=== PATIENT | female | born 1955 | race Caucasian/White ===

== ENCOUNTER 2020-03-16 14:49 | Inpatient (IN) | payer MEDICARE, MEDICAID ==
[~2020-03-16] VITALS: Ht 165.1 cm; Wt 119.6 kg
[~2020-03-16 14:49] MED LIST: LEVO50TA4 PO; LORA1TAB3 PO; QUET400T5 PO; ZOLP10TA8 PO
[2020-03-16 16:56] LABS: BASOPHILS % (AUTO) 1.5 % (0.0-2.0); EOSINOPHILS % (AUTO) 2.7 % (1.0-6.0); HEMOGLOBIN 11.8 g/dL (12.0-16.0); LYMPHOCYTES # (AUTO) 1.3 K/uL (1.0-4.8); MEAN CORPUSCULAR HEMOGLOBIN 28.4 pg (26.0-34.0); MEAN CORPUSCULAR HGB CONC 31.8 G/dL (31.0-37.0); MEAN CORPUSCULAR VOLUME 89 fL (80-100); MONOCYTES # (AUTO) 0.5 K/uL (0.1-1.0); MONOCYTES % (AUTO) 9.7 % (2.0-9.0); NEUTROPHILS # (AUTO) 3.1 K/uL (1.8-7.7); NEUTROPHILS % (AUTO) 60.1 % (40.0-70.0); PLATELET COUNT (AUTO) 251 K/uL (150-450); RED BLOOD CELL COUNT(AUTO) 4.15 MIL/uL (4.00-5.20); RED CELL DISTRIBUTION WIDTH 15.2 % (11.5-14.5)
[2020-03-16] MEDS ORDERED: ZOLPIDEM TARTRATE 10 MG TABLET PO PRN (17:15)
[2020-03-16] MEDS ORDERED: QUEtiapine FUMARATE 100 MG TABLET PO PRN (17:15)
[2020-03-16] MEDS ORDERED: LORazepam 2 MG TABLET PO PRN (17:15)
[2020-03-16 17:50] LABS: ALANINE AMINOTRANSFERASE 16 U/L (12-78); ALBUMIN 3.7 g/dL (3.4-5.0); ALKALINE PHOSPHATASE 69 U/L (46-116); ANION GAP 6 mmol/L (8-16); ASPARTATE AMINOTRANSFERASE 20 U/L (15-37); BILIRUBIN,TOTAL 0.5 mg/dL (0.1-1.0); CALCIUM, TOTAL 8.7 mg/dL (8.8-10.5); CARBON DIOXIDE 28 mmol/L (22-29); CHLORIDE 102 mmol/L (98-107); CREATININE 0.95 mg/dL (0.60-1.30); GLOMERULAR FILTR. RATE CALC 59 mL/min (>60); GLUCOSE,RANDOM 95 mg/dL (70-110); POTASSIUM 3.9 mmol/L (3.5-5.1); SODIUM SERUM 136 mmol/L (136-145); TOTAL PROTEIN, SERUM 7.8 g/dL (6.4-8.2); UREA NITROGEN, BLOOD 14 mg/dL (7-18)
[2020-03-16 19:38] VITALS: BP 124/90
[2020-03-16] MEDS ORDERED: INFLUENZA VIRUS VACCINE QVS 2019-20 (3YR+)/PF 60 MCG/0.5 ML SYRINGE IM ONE (20:30)
[2020-03-16] MEDS ORDERED: PNEUMOCOCCAL VACCINE POLYVALENT 0.5 ML VIAL [PPSV23] IM ONE (20:30)
[2020-03-17 02:25] VITALS: BP 124/90
[2020-03-17] MEDS: LEVOTHYROXINE SODIUM 137 MCG TABLET PO SCH (07:16)
[2020-03-17 07:47] LABS: CHOL/HDL RATIO 3.5 (3.9-5.7); THYROID STIMULATING HORMONE 14.7 uIU/mL (0.36-3.74)
[2020-03-17 08:53] VITALS: BP 144/77
[2020-03-17] MEDS ORDERED: MAG HYDROX/AL HYDROX/SIMETH ES 30 ML SUSPENSION UDCUP PO PRN (11:45)
[2020-03-17] MEDS ORDERED: NICOTINE 14 MG/24 HOUR PATCH TD PRN (11:45)
[2020-03-17] MEDS ORDERED: GuaiFENesin/D-METHORPHAN [SUGAR-FREE] 200-20MG/10 ML SYRUP UDCUP PO PRN (11:45)
[2020-03-17] MEDS ORDERED: ALBUTEROL SULFATE HFA 90 MCG/PUFF 8 GM INHALER IH PRN (11:45)
[2020-03-17] MEDS ORDERED: ONDANSETRON HCL 4 MG TABLET PO PRN (11:45)
[2020-03-17] MEDS ORDERED: PETROLATUM,WHITE 28 GM JELLY TP PRN (11:45)
[2020-03-17] MEDS ORDERED: LOPERAMIDE HCL 2 MG CAPSULE PO PRN (11:45)
[2020-03-17] MEDS ORDERED: CloNIDine HCL 0.1 MG TABLET PO PRN (11:45)
[2020-03-17] MEDS ORDERED: ACETAMINOPHEN 325 MG TABLET PO PRN (11:45)
[2020-03-17 12:32] LABS: APPEARANCE,URINE CLOUDY (CLEAR); BILIRUBIN,URINE NEGATIVE (NEGATIVE); GLUCOSE, URINE (UA) NEGATIVE (NEGATIVE); KETONES,URINE NEGATIVE (NEGATIVE); LEUKOCYTE ESTERASE ,URINE SMALL (NEGATIVE); NITRATE,URINE NEGATIVE (NEGATIVE); OCCULT BLOOD,URINE NEGATIVE (NEGATIVE); PH,URINE 6.5 (5.0-8.0); PROTEIN,URINE NEGATIVE (NEGATIVE); UROBILINOGEN,URINE 0.2 mg/dL (<=1.0)
[2020-03-17 13:04] LABS: AMPHET/METH SCREEN,URINE NEGATIVE (NEGATIVE); BARBITURATE SCREEN, URINE NEGATIVE (NEGATIVE); BENZODIAZEPINES SCREEN,URINE NEGATIVE (NEGATIVE); CANNABINOID SCREEN,URINE NEGATIVE (NEGATIVE); COCAINE SCREEN,URINE NEGATIVE (NEGATIVE); METHADONE SCREEN, URINE NEGATIVE (NEGATIVE); OPIATE SCREEN,URINE NEGATIVE (NEGATIVE)
[2020-03-17 13:05] LABS: PHENCYCLIDINE SCREEN,URINE NEGATIVE (NEGATIVE)
[2020-03-17 13:36] LABS: BACTERIA,URINE None Seen /HPF (None Seen); RBC,URINE None Seen /HPF (0-2); SQUAMOUS EPITHELIAL CELL,UR Rare /LPF (None Seen); WBC,URINE 0-2 /HPF (0-5)
[2020-03-17] MEDS ORDERED: ChlorproMAZINE HCL 25 MG/ML 2 ML AMP IM PRN ×2 (15:00)
[2020-03-17] MEDS ORDERED: OLANZapine 5 MG RAPDIS TABLET PO PRN (15:00)
[2020-03-17 16:45] VITALS: BP 119/90
[2020-03-17 16:54] VITALS: BP 119/90
[2020-03-17] MEDS: DIVALPROEX SODIUM 500 MG DR TABLET PO SCH (20:26)
[2020-03-17] MEDS: QUEtiapine FUMARATE 200 MG TABLET PO SCH (20:26)
[2020-03-18] MEDS: LEVOTHYROXINE SODIUM 137 MCG TABLET PO SCH (06:49)
[2020-03-18 08:41] VITALS: BP 137/92
[2020-03-18] MEDS: DIVALPROEX SODIUM 500 MG DR TABLET PO SCH ×2 (08:41→20:07)
[2020-03-18] MEDS: MULTIVITAMINS WITH MINERALS, THERAPEUTIC TABLET PO SCH (08:41)
[2020-03-18] MEDS: IBUPROFEN 400 MG TABLET PO PRN (08:41)
[2020-03-18 08:52] VITALS: BP 137/92
[2020-03-18 16:55] VITALS: BP 113/67
[2020-03-18] MEDS: QUEtiapine FUMARATE 200 MG TABLET PO SCH (20:08)
[2020-03-19] MEDS: LEVOTHYROXINE SODIUM 137 MCG TABLET PO SCH (06:49)
[2020-03-19] MEDS: DIVALPROEX SODIUM 500 MG DR TABLET PO SCH ×2 (08:22→20:18)
[2020-03-19] MEDS: MULTIVITAMINS WITH MINERALS, THERAPEUTIC TABLET PO SCH (08:22)
[2020-03-19 09:50] VITALS: BP 95/57
[2020-03-19 16:17] VITALS: BP 97/53
[2020-03-19] MEDS: QUEtiapine FUMARATE 200 MG TABLET PO SCH (20:18)
[2020-03-19] MEDS: DOCUSATE SODIUM 100 MG CAPSULE PO PRN (20:18)
[2020-03-19] MEDS: IBUPROFEN 400 MG TABLET PO PRN (20:36)
[2020-03-20] MEDS: LEVOTHYROXINE SODIUM 137 MCG TABLET PO SCH (06:23)
[2020-03-20] MEDS: MULTIVITAMINS WITH MINERALS, THERAPEUTIC TABLET PO SCH (09:27)
[2020-03-20] MEDS: DIVALPROEX SODIUM 500 MG DR TABLET PO SCH ×2 (09:27→19:55)
[2020-03-20] MEDS: DOCUSATE SODIUM 100 MG CAPSULE PO PRN (09:32)
[2020-03-20] MEDS: IBUPROFEN 400 MG TABLET PO PRN (09:32)
[2020-03-20 11:20] VITALS: BP 134/79
[2020-03-20 17:04] VITALS: BP 117/75
[2020-03-20] MEDS ORDERED: ZIPRASIDONE MESYLATE 20 MG/VIAL IM ONE (19:15)
[2020-03-20] MEDS: QUEtiapine FUMARATE 200 MG TABLET PO SCH (19:55)
[2020-03-21] MEDS: LEVOTHYROXINE SODIUM 137 MCG TABLET PO SCH (06:38)
[2020-03-21 08:30] VITALS: BP 129/71
[2020-03-21] MEDS: IBUPROFEN 400 MG TABLET PO PRN (08:41)
[2020-03-21] MEDS: DOCUSATE SODIUM 100 MG CAPSULE PO PRN ×2 (08:42→20:04)
[2020-03-21] MEDS: MULTIVITAMINS WITH MINERALS, THERAPEUTIC TABLET PO SCH (09:23)
[2020-03-21] MEDS: DIVALPROEX SODIUM 500 MG DR TABLET PO SCH ×2 (09:23→20:04)
[2020-03-21 16:45] VITALS: BP 122/90
[2020-03-21] MEDS: QUEtiapine FUMARATE 200 MG TABLET PO SCH (20:04)
[2020-03-21 20:34] VITALS: BP 118/78
[2020-03-22] MEDS: LEVOTHYROXINE SODIUM 137 MCG TABLET PO SCH (06:27)
[2020-03-22] MEDS: MULTIVITAMINS WITH MINERALS, THERAPEUTIC TABLET PO SCH (08:22)
[2020-03-22] MEDS: DIVALPROEX SODIUM 500 MG DR TABLET PO SCH ×2 (08:23→20:17)
[2020-03-22] MEDS: DOCUSATE SODIUM 100 MG CAPSULE PO PRN (08:27)
[2020-03-22] MEDS: IBUPROFEN 400 MG TABLET PO PRN (08:27)
[2020-03-22 09:16] VITALS: BP 121/79
[2020-03-22 17:00] VITALS: BP 131/87
[2020-03-22] MEDS: QUEtiapine FUMARATE 200 MG TABLET PO SCH (20:17)
[2020-03-23] MEDS: LEVOTHYROXINE SODIUM 137 MCG TABLET PO SCH (06:19)
[2020-03-23] MEDS: DIVALPROEX SODIUM 500 MG DR TABLET PO SCH ×2 (09:04→20:08)
[2020-03-23] MEDS: MULTIVITAMINS WITH MINERALS, THERAPEUTIC TABLET PO SCH (09:04)
[2020-03-23 09:07] VITALS: BP 123/65
[2020-03-23] MEDS: QUEtiapine FUMARATE 200 MG TABLET PO SCH (20:09)
[2020-03-23 20:12] VITALS: BP 117/67
[2020-03-23] MEDS: DOCUSATE SODIUM 100 MG CAPSULE PO PRN (20:12)
[2020-03-23] MEDS: IBUPROFEN 400 MG TABLET PO PRN (20:12)
[2020-03-24] MEDS: LEVOTHYROXINE SODIUM 137 MCG TABLET PO SCH (06:06)
[2020-03-24] MEDS: DIVALPROEX SODIUM 500 MG DR TABLET PO SCH ×2 (09:08→20:26)
[2020-03-24] MEDS: MULTIVITAMINS WITH MINERALS, THERAPEUTIC TABLET PO SCH (09:08)
[2020-03-24] MEDS: DOCUSATE SODIUM 100 MG CAPSULE PO PRN (09:18)
[2020-03-24 09:19] VITALS: BP 102/75
[2020-03-24] MEDS: IBUPROFEN 400 MG TABLET PO PRN (09:19)
[2020-03-24 19:59] VITALS: BP 106/51
[2020-03-24] MEDS: QUEtiapine FUMARATE 200 MG TABLET PO SCH (20:26)
[2020-03-25] MEDS: LEVOTHYROXINE SODIUM 137 MCG TABLET PO SCH (06:50)
[2020-03-25] MEDS: DIVALPROEX SODIUM 500 MG DR TABLET PO SCH ×2 (08:28→20:36)
[2020-03-25] MEDS: MULTIVITAMINS WITH MINERALS, THERAPEUTIC TABLET PO SCH (08:28)
[2020-03-25] MEDS: IBUPROFEN 400 MG TABLET PO PRN (08:33)
[2020-03-25] MEDS: DOCUSATE SODIUM 100 MG CAPSULE PO PRN ×2 (08:33→20:43)
[2020-03-25] MEDS: MAGNESIUM HYDROXIDE SUSPENSION 30 ML UDCUP PO PRN (11:55)
[2020-03-25 16:43] VITALS: BP 111/84
[2020-03-25] MEDS: QUEtiapine FUMARATE 200 MG TABLET PO SCH (20:36)
[2020-03-26] MEDS: LEVOTHYROXINE SODIUM 137 MCG TABLET PO SCH (06:17)
[2020-03-26 08:00] VITALS: BP 110/75
[2020-03-26] MEDS: DIVALPROEX SODIUM 500 MG DR TABLET PO SCH ×2 (08:28→20:31)
[2020-03-26] MEDS: MULTIVITAMINS WITH MINERALS, THERAPEUTIC TABLET PO SCH (08:28)
[2020-03-26 08:35] VITALS: BP 110/75
[2020-03-26] MEDS: IBUPROFEN 400 MG TABLET PO PRN (08:36)
[2020-03-26] MEDS: MAGNESIUM HYDROXIDE SUSPENSION 30 ML UDCUP PO PRN (08:36)
[2020-03-26] MEDS: DOCUSATE SODIUM 100 MG CAPSULE PO PRN (08:36)
[2020-03-26 16:49] VITALS: BP 112/75
[2020-03-26] MEDS: QUEtiapine FUMARATE 200 MG TABLET PO SCH (20:30)
[2020-03-27] MEDS: LEVOTHYROXINE SODIUM 137 MCG TABLET PO SCH (06:45)
[2020-03-27] MEDS: MULTIVITAMINS WITH MINERALS, THERAPEUTIC TABLET PO SCH (08:38)
[2020-03-27] MEDS: DIVALPROEX SODIUM 500 MG DR TABLET PO SCH ×2 (08:38→20:22)
[2020-03-27 08:44] VITALS: BP 114/67
[2020-03-27] MEDS: DOCUSATE SODIUM 100 MG CAPSULE PO PRN (08:44)
[2020-03-27] MEDS: IBUPROFEN 400 MG TABLET PO PRN (08:44)
[2020-03-27 16:36] VITALS: BP 110/72
[2020-03-27] MEDS: QUEtiapine FUMARATE 200 MG TABLET PO SCH (20:22)
[2020-03-28 00:30] VITALS: BP 104/73
[2020-03-28] MEDS: LEVOTHYROXINE SODIUM 137 MCG TABLET PO SCH (06:54)
[2020-03-28] MEDS: MULTIVITAMINS WITH MINERALS, THERAPEUTIC TABLET PO SCH (08:15)
[2020-03-28] MEDS: DIVALPROEX SODIUM 500 MG DR TABLET PO SCH ×2 (08:15→20:15)
[2020-03-28] MEDS: IBUPROFEN 400 MG TABLET PO PRN (08:22)
[2020-03-28] MEDS: DOCUSATE SODIUM 100 MG CAPSULE PO PRN ×2 (08:23→16:16)
[2020-03-28 09:48] VITALS: BP 123/84
[2020-03-28] MEDS: SENNA 187 MG TABLET PO PRN (18:20)
[2020-03-28] MEDS: QUEtiapine FUMARATE 200 MG TABLET PO SCH (20:15)
[2020-03-28 22:30] VITALS: BP 114/74
[2020-03-29] MEDS: LEVOTHYROXINE SODIUM 137 MCG TABLET PO SCH (07:04)
[2020-03-29] MEDS: DOCUSATE SODIUM 100 MG CAPSULE PO PRN (08:12)
[2020-03-29] MEDS: MULTIVITAMINS WITH MINERALS, THERAPEUTIC TABLET PO SCH (09:22)
[2020-03-29] MEDS: DIVALPROEX SODIUM 500 MG DR TABLET PO SCH ×2 (09:22→20:11)
[2020-03-29 09:24] VITALS: BP 124/71
[2020-03-29] MEDS: SENNA 187 MG TABLET PO PRN ×2 (09:24→18:44)
[2020-03-29] MEDS: IBUPROFEN 400 MG TABLET PO PRN (09:24)
[2020-03-29 17:01] VITALS: BP 99/65
[2020-03-29] MEDS: QUEtiapine FUMARATE 200 MG TABLET PO SCH (20:10)
[2020-03-30] MEDS: LEVOTHYROXINE SODIUM 137 MCG TABLET PO SCH (07:11)
[2020-03-30 08:34] VITALS: BP 129/94
[2020-03-30] MEDS: SENNA 187 MG TABLET PO PRN ×3 (08:34→20:24)
[2020-03-30] MEDS: DIVALPROEX SODIUM 500 MG DR TABLET PO SCH ×2 (08:34→20:24)
[2020-03-30] MEDS: MULTIVITAMINS WITH MINERALS, THERAPEUTIC TABLET PO SCH (08:34)
[2020-03-30] MEDS: IBUPROFEN 400 MG TABLET PO PRN (08:34)
[2020-03-30 16:22] VITALS: BP 114/65
[2020-03-30] MEDS: QUEtiapine FUMARATE 200 MG TABLET PO SCH (20:24)
[2020-03-31] MEDS: LEVOTHYROXINE SODIUM 137 MCG TABLET PO SCH (06:32)
[2020-03-31 08:30] VITALS: BP 111/73
[2020-03-31] MEDS: DIVALPROEX SODIUM 500 MG DR TABLET PO SCH ×2 (08:53→20:14)
[2020-03-31] MEDS: MULTIVITAMINS WITH MINERALS, THERAPEUTIC TABLET PO SCH (08:53)
[2020-03-31] MEDS: SENNA 187 MG TABLET PO PRN ×3 (08:55→20:16)
[2020-03-31] MEDS: IBUPROFEN 400 MG TABLET PO PRN (08:56)
[2020-03-31 16:41] VITALS: BP 143/74
[2020-03-31] MEDS: QUEtiapine FUMARATE 200 MG TABLET PO SCH (20:15)
[2020-04-01] MEDS: LEVOTHYROXINE SODIUM 137 MCG TABLET PO SCH (06:08)
[2020-04-01 08:33] VITALS: BP 124/82
[2020-04-01] MEDS: MULTIVITAMINS WITH MINERALS, THERAPEUTIC TABLET PO SCH (08:33)
[2020-04-01] MEDS: DIVALPROEX SODIUM 500 MG DR TABLET PO SCH ×2 (08:33→20:10)
[2020-04-01] MEDS: IBUPROFEN 400 MG TABLET PO PRN (08:33)
[2020-04-01] MEDS: SENNA 187 MG TABLET PO PRN ×3 (08:35→20:27)
[2020-04-01 16:00] VITALS: BP 122/73
[2020-04-01] MEDS: QUEtiapine FUMARATE 200 MG TABLET PO SCH (20:10)
[2020-04-02] MEDS: LEVOTHYROXINE SODIUM 137 MCG TABLET PO SCH (06:09)
[2020-04-02 08:33] VITALS: BP 115/70
[2020-04-02] MEDS: MULTIVITAMINS WITH MINERALS, THERAPEUTIC TABLET PO SCH (08:33)
[2020-04-02] MEDS: IBUPROFEN 400 MG TABLET PO PRN ×2 (08:33→20:17)
[2020-04-02] MEDS: DIVALPROEX SODIUM 500 MG DR TABLET PO SCH ×2 (08:33→20:16)
[2020-04-02] MEDS: SENNA 187 MG TABLET PO PRN ×2 (08:34→20:17)
[2020-04-02 16:17] VITALS: BP 113/78
[2020-04-02] MEDS: QUEtiapine FUMARATE 200 MG TABLET PO SCH (20:16)
[2020-04-02 20:17] VITALS: BP 118/76
[2020-04-03] MEDS: LEVOTHYROXINE SODIUM 137 MCG TABLET PO SCH (07:33)
[2020-04-03] MEDS: MULTIVITAMINS WITH MINERALS, THERAPEUTIC TABLET PO SCH (08:26)
[2020-04-03] MEDS: DIVALPROEX SODIUM 500 MG DR TABLET PO SCH ×2 (08:26→20:49)
[2020-04-03 08:31] VITALS: BP 119/76
[2020-04-03] MEDS: SENNA 187 MG TABLET PO PRN ×3 (08:31→20:49)
[2020-04-03] MEDS: IBUPROFEN 400 MG TABLET PO PRN (08:31)
[2020-04-03 14:09] VITALS: BP 107/77
[2020-04-03 16:39] VITALS: BP 117/77
[2020-04-03] MEDS: QUEtiapine FUMARATE 200 MG TABLET PO SCH (20:49)
[2020-04-04] MEDS: LEVOTHYROXINE SODIUM 150 MCG TABLET PO SCH (06:33)
[2020-04-04] MEDS: DIVALPROEX SODIUM 500 MG DR TABLET PO SCH ×2 (08:18→20:04)
[2020-04-04] MEDS: MULTIVITAMINS WITH MINERALS, THERAPEUTIC TABLET PO SCH (08:19)
[2020-04-04] MEDS: IBUPROFEN 400 MG TABLET PO PRN (08:19)
[2020-04-04] MEDS: SENNA 187 MG TABLET PO PRN ×3 (08:22→20:05)
[2020-04-04 16:47] VITALS: BP 109/69
[2020-04-04] MEDS: QUEtiapine FUMARATE 200 MG TABLET PO SCH (20:04)
[2020-04-05] MEDS: LEVOTHYROXINE SODIUM 150 MCG TABLET PO SCH (06:23)
[2020-04-05 08:30] VITALS: BP 115/74
[2020-04-05] MEDS: MULTIVITAMINS WITH MINERALS, THERAPEUTIC TABLET PO SCH (09:00)
[2020-04-05] MEDS: DIVALPROEX SODIUM 500 MG DR TABLET PO SCH ×2 (09:00→20:24)
[2020-04-05] MEDS: SENNA 187 MG TABLET PO PRN ×2 (09:05→20:27)
[2020-04-05] MEDS: IBUPROFEN 400 MG TABLET PO PRN (09:05)
[2020-04-05 16:56] VITALS: BP 95/61
[2020-04-05] MEDS: QUEtiapine FUMARATE 200 MG TABLET PO SCH (20:24)
[2020-04-06] MEDS: LEVOTHYROXINE SODIUM 150 MCG TABLET PO SCH (06:29)
[2020-04-06] MEDS: MULTIVITAMINS WITH MINERALS, THERAPEUTIC TABLET PO SCH (07:54)
[2020-04-06] MEDS: DIVALPROEX SODIUM 500 MG DR TABLET PO SCH ×2 (07:54→20:01)
[2020-04-06] MEDS: SENNA 187 MG TABLET PO PRN ×2 (07:54→20:02)
[2020-04-06 08:39] VITALS: BP 136/67
[2020-04-06 18:37] VITALS: BP 128/80
[2020-04-06] MEDS: QUEtiapine FUMARATE 200 MG TABLET PO SCH (20:01)
[2020-04-07] MEDS: LEVOTHYROXINE SODIUM 150 MCG TABLET PO SCH (06:55)
[2020-04-07 07:49] VITALS: BP 122/81
[2020-04-07] MEDS: SENNA 187 MG TABLET PO PRN ×2 (08:03→21:11)
[2020-04-07] MEDS: IBUPROFEN 400 MG TABLET PO PRN (08:03)
[2020-04-07] MEDS: MULTIVITAMINS WITH MINERALS, THERAPEUTIC TABLET PO SCH (09:19)
[2020-04-07] MEDS: DIVALPROEX SODIUM 500 MG DR TABLET PO SCH ×2 (09:19→21:10)
[2020-04-07 13:24] VITALS: BP 124/82
[2020-04-07 17:28] VITALS: BP 118/86
[2020-04-07] MEDS: QUEtiapine FUMARATE 200 MG TABLET PO SCH (21:10)
[2020-04-08] MEDS: LEVOTHYROXINE SODIUM 150 MCG TABLET PO SCH (06:12)
[2020-04-08 08:00] VITALS: BP 124/72
[2020-04-08] MEDS: SENNA 187 MG TABLET PO PRN ×2 (08:31→20:28)
[2020-04-08] MEDS: DIVALPROEX SODIUM 500 MG DR TABLET PO SCH ×2 (08:31→20:27)
[2020-04-08] MEDS: MULTIVITAMINS WITH MINERALS, THERAPEUTIC TABLET PO SCH (08:31)
[2020-04-08] MEDS: IBUPROFEN 400 MG TABLET PO PRN (13:37)
[2020-04-08 18:00] VITALS: BP 140/71
[2020-04-08] MEDS: QUEtiapine FUMARATE 200 MG TABLET PO SCH (20:27)
[2020-04-09] MEDS: LEVOTHYROXINE SODIUM 150 MCG TABLET PO SCH (06:37)
[2020-04-09 08:00] VITALS: BP 100/44
[2020-04-09] MEDS: DIVALPROEX SODIUM 500 MG DR TABLET PO SCH ×2 (08:45→20:30)
[2020-04-09] MEDS: SENNA 187 MG TABLET PO PRN (08:45)
[2020-04-09] MEDS: IBUPROFEN 400 MG TABLET PO PRN (08:45)
[2020-04-09] MEDS: MULTIVITAMINS WITH MINERALS, THERAPEUTIC TABLET PO SCH (08:45)
[2020-04-09 16:48] VITALS: BP 107/77
[2020-04-09] MEDS: QUEtiapine FUMARATE 200 MG TABLET PO SCH (20:31)
[2020-04-10] MEDS: LEVOTHYROXINE SODIUM 150 MCG TABLET PO SCH (06:51)
[2020-04-10 08:00] VITALS: BP 115/84
[2020-04-10] MEDS: SENNA 187 MG TABLET PO PRN ×2 (08:19→21:14)
[2020-04-10] MEDS: DIVALPROEX SODIUM 500 MG DR TABLET PO SCH ×2 (08:19→21:10)
[2020-04-10] MEDS: MULTIVITAMINS WITH MINERALS, THERAPEUTIC TABLET PO SCH (08:19)
[2020-04-10 11:31] LABS: GLUCOMETER DEV NAME(LOC) 3EX.; GLUCOSE,POINT OF CARE 157 MG/DL (70-110)
[2020-04-10 17:18] VITALS: BP 114/78
[2020-04-10] MEDS: QUEtiapine FUMARATE 200 MG TABLET PO SCH (21:10)
[2020-04-11] MEDS: DIVALPROEX SODIUM 500 MG DR TABLET PO SCH ×2 (09:04→20:16)
[2020-04-11] MEDS: MULTIVITAMINS WITH MINERALS, THERAPEUTIC TABLET PO SCH (09:04)
[2020-04-11] MEDS: LEVOTHYROXINE SODIUM 150 MCG TABLET PO SCH (09:05)
[2020-04-11 09:39] VITALS: BP 105/65
[2020-04-11] MEDS: SENNA 187 MG TABLET PO PRN ×2 (09:53→20:16)
[2020-04-11 16:00] VITALS: BP 110/70
[2020-04-11] MEDS: QUEtiapine FUMARATE 200 MG TABLET PO SCH (20:16)
[2020-04-12] MEDS: LEVOTHYROXINE SODIUM 150 MCG TABLET PO SCH (06:48)
[2020-04-12 08:00] VITALS: BP 102/62
[2020-04-12] MEDS: DIVALPROEX SODIUM 500 MG DR TABLET PO SCH ×2 (08:20→20:13)
[2020-04-12] MEDS: MULTIVITAMINS WITH MINERALS, THERAPEUTIC TABLET PO SCH (08:20)
[2020-04-12] MEDS: SENNA 187 MG TABLET PO PRN ×2 (08:20→20:17)
[2020-04-12] MEDS: IBUPROFEN 400 MG TABLET PO PRN (08:20)
[2020-04-12 16:18] VITALS: BP 128/80
[2020-04-12] MEDS: QUEtiapine FUMARATE 200 MG TABLET PO SCH (20:13)
[2020-04-13] MEDS: LEVOTHYROXINE SODIUM 88 MCG TABLET PO SCH (06:36)
[2020-04-13] MEDS ORDERED: LEVOTHYROXINE SODIUM 25 MCG TABLET PO SCH (07:00)
[2020-04-13 08:00] VITALS: BP 102/62
[2020-04-13] MEDS: MULTIVITAMINS WITH MINERALS, THERAPEUTIC TABLET PO SCH (08:22)
[2020-04-13] MEDS: SENNA 187 MG TABLET PO PRN ×2 (08:22→20:48)
[2020-04-13] MEDS: DIVALPROEX SODIUM 500 MG DR TABLET PO SCH ×2 (08:22→20:48)
[2020-04-13 16:41] VITALS: BP 102/63
[2020-04-13] MEDS: IBUPROFEN 400 MG TABLET PO PRN (17:00)
[2020-04-13] MEDS: QUEtiapine FUMARATE 200 MG TABLET PO SCH (20:48)
[2020-04-14] MEDS: LEVOTHYROXINE SODIUM 88 MCG TABLET PO SCH (06:13)
[2020-04-14 08:00] VITALS: BP 109/70
[2020-04-14] MEDS: MULTIVITAMINS WITH MINERALS, THERAPEUTIC TABLET PO SCH (08:25)
[2020-04-14] MEDS: SENNA 187 MG TABLET PO PRN ×2 (08:26→20:13)
[2020-04-14] MEDS: DIVALPROEX SODIUM 500 MG DR TABLET PO SCH ×2 (08:26→20:13)
[2020-04-14 17:01] VITALS: BP 121/81
[2020-04-14] MEDS: QUEtiapine FUMARATE 200 MG TABLET PO SCH (20:13)
[2020-04-15] MEDS: LEVOTHYROXINE SODIUM 88 MCG TABLET PO SCH (06:19)
[2020-04-15] MEDS: DIVALPROEX SODIUM 500 MG DR TABLET PO SCH ×2 (08:04→20:07)
[2020-04-15] MEDS: MULTIVITAMINS WITH MINERALS, THERAPEUTIC TABLET PO SCH (08:04)
[2020-04-15 10:10] VITALS: BP 111/65
[2020-04-15 16:00] VITALS: BP 120/73
[2020-04-15] MEDS: QUEtiapine FUMARATE 200 MG TABLET PO SCH (20:07)
[2020-04-15] MEDS: SENNA 187 MG TABLET PO PRN (20:08)
[2020-04-16] MEDS: LEVOTHYROXINE SODIUM 88 MCG TABLET PO SCH (06:21)
[2020-04-16] MEDS: DIVALPROEX SODIUM 500 MG DR TABLET PO SCH ×2 (08:49→20:06)
[2020-04-16] MEDS: MULTIVITAMINS WITH MINERALS, THERAPEUTIC TABLET PO SCH (08:49)
[2020-04-16 09:54] VITALS: BP 150/88
[2020-04-16] MEDS: DOCUSATE SODIUM 100 MG CAPSULE PO PRN (10:09)
[2020-04-16 10:12] VITALS: BP 106/66
[2020-04-16] MEDS: IBUPROFEN 400 MG TABLET PO PRN (10:12)
[2020-04-16] MEDS: SENNA 187 MG TABLET PO PRN ×2 (10:20→20:07)
[2020-04-16 11:12] VITALS: BP 90/55
[2020-04-16 16:27] VITALS: BP 105/67
[2020-04-16] MEDS: QUEtiapine FUMARATE 200 MG TABLET PO SCH (20:07)
[2020-04-17] MEDS: LEVOTHYROXINE SODIUM 88 MCG TABLET PO SCH (07:12)
[2020-04-17] MEDS: DIVALPROEX SODIUM 500 MG DR TABLET PO SCH ×2 (08:14→20:29)
[2020-04-17] MEDS: MULTIVITAMINS WITH MINERALS, THERAPEUTIC TABLET PO SCH (08:14)
[2020-04-17] MEDS: SENNA 187 MG TABLET PO PRN ×2 (08:14→20:28)
[2020-04-17 12:49] VITALS: BP 97/54
[2020-04-17] MEDS: QUEtiapine FUMARATE 200 MG TABLET PO SCH (20:28)
[2020-04-17 20:44] VITALS: BP 116/72
[2020-04-18] MEDS: LEVOTHYROXINE SODIUM 88 MCG TABLET PO SCH (06:41)
[2020-04-18 08:00] VITALS: BP 102/65
[2020-04-18] MEDS: MULTIVITAMINS WITH MINERALS, THERAPEUTIC TABLET PO SCH (08:22)
[2020-04-18] MEDS: SENNA 187 MG TABLET PO PRN ×2 (08:22→20:10)
[2020-04-18] MEDS: DIVALPROEX SODIUM 500 MG DR TABLET PO SCH ×2 (08:22→20:10)
[2020-04-18 17:01] VITALS: BP 133/97
[2020-04-18] MEDS: QUEtiapine FUMARATE 200 MG TABLET PO SCH (20:10)
[2020-04-19] MEDS: LEVOTHYROXINE SODIUM 88 MCG TABLET PO SCH (06:59)
[2020-04-19 08:00] VITALS: BP 131/89
[2020-04-19] MEDS: DIVALPROEX SODIUM 500 MG DR TABLET PO SCH ×2 (08:27→20:14)
[2020-04-19] MEDS: MULTIVITAMINS WITH MINERALS, THERAPEUTIC TABLET PO SCH (08:27)
[2020-04-19] MEDS: QUEtiapine FUMARATE 200 MG TABLET PO SCH (20:14)
[2020-04-19] MEDS: SENNA 187 MG TABLET PO PRN (20:16)
[2020-04-19 21:24] VITALS: BP 117/82
[2020-04-20] MEDS: LEVOTHYROXINE SODIUM 88 MCG TABLET PO SCH (06:35)
[2020-04-20 08:00] VITALS: BP 110/71
[2020-04-20] MEDS: SENNA 187 MG TABLET PO PRN ×2 (08:35→20:24)
[2020-04-20] MEDS: MULTIVITAMINS WITH MINERALS, THERAPEUTIC TABLET PO SCH (08:35)
[2020-04-20] MEDS: DIVALPROEX SODIUM 500 MG DR TABLET PO SCH ×2 (08:35→20:24)
[2020-04-20 17:55] VITALS: BP 104/69
[2020-04-20] MEDS: QUEtiapine FUMARATE 200 MG TABLET PO SCH (20:25)
[2020-04-21] MEDS: LEVOTHYROXINE SODIUM 88 MCG TABLET PO SCH (06:37)
[2020-04-21 08:00] VITALS: BP 114/69
[2020-04-21] MEDS: MULTIVITAMINS WITH MINERALS, THERAPEUTIC TABLET PO SCH (08:16)
[2020-04-21] MEDS: SENNA 187 MG TABLET PO PRN ×2 (08:16→20:02)
[2020-04-21] MEDS: DIVALPROEX SODIUM 500 MG DR TABLET PO SCH ×2 (08:16→20:00)
[2020-04-21 19:44] VITALS: BP 124/74
[2020-04-21] MEDS: QUEtiapine FUMARATE 200 MG TABLET PO SCH (20:00)
[2020-04-22] MEDS: LEVOTHYROXINE SODIUM 88 MCG TABLET PO SCH (06:10)
[2020-04-22] MEDS: MULTIVITAMINS WITH MINERALS, THERAPEUTIC TABLET PO SCH (08:19)
[2020-04-22] MEDS: SENNA 187 MG TABLET PO PRN ×2 (08:20→21:07)
[2020-04-22] MEDS: DIVALPROEX SODIUM 500 MG DR TABLET PO SCH ×2 (08:20→21:05)
[2020-04-22 08:45] VITALS: BP 137/79
[2020-04-22 17:00] VITALS: BP 114/78
[2020-04-22] MEDS: QUEtiapine FUMARATE 200 MG TABLET PO SCH (21:05)
[2020-04-23] MEDS: LEVOTHYROXINE SODIUM 88 MCG TABLET PO SCH (06:51)
[2020-04-23] MEDS: MULTIVITAMINS WITH MINERALS, THERAPEUTIC TABLET PO SCH (09:32)
[2020-04-23] MEDS: DIVALPROEX SODIUM 500 MG DR TABLET PO SCH ×2 (09:32→20:14)
[2020-04-23 10:13] VITALS: BP 122/90
[2020-04-23 16:00] VITALS: BP 105/78
[2020-04-23] MEDS: QUEtiapine FUMARATE 200 MG TABLET PO SCH (20:14)
[2020-04-23] MEDS: SENNA 187 MG TABLET PO PRN (20:16)
[2020-04-24] MEDS: LEVOTHYROXINE SODIUM 88 MCG TABLET PO SCH (06:30)
[2020-04-24] MEDS: DIVALPROEX SODIUM 500 MG DR TABLET PO SCH ×2 (08:23→20:05)
[2020-04-24] MEDS: MULTIVITAMINS WITH MINERALS, THERAPEUTIC TABLET PO SCH (08:23)
[2020-04-24] MEDS: SENNA 187 MG TABLET PO PRN ×2 (08:25→20:05)
[2020-04-24 09:45] VITALS: BP 108/72
[2020-04-24 17:03] VITALS: BP 104/75
[2020-04-24] MEDS: QUEtiapine FUMARATE 200 MG TABLET PO SCH (20:06)
[2020-04-25] MEDS: LEVOTHYROXINE SODIUM 88 MCG TABLET PO SCH (07:09)
[2020-04-25] MEDS: MULTIVITAMINS WITH MINERALS, THERAPEUTIC TABLET PO SCH (08:46)
[2020-04-25] MEDS: DIVALPROEX SODIUM 500 MG DR TABLET PO SCH ×2 (08:46→20:28)
[2020-04-25] MEDS: SENNA 187 MG TABLET PO PRN ×2 (08:48→20:28)
[2020-04-25 09:01] VITALS: BP 102/73
[2020-04-25] MEDS: QUEtiapine FUMARATE 200 MG TABLET PO SCH (20:28)
[2020-04-25 21:31] VITALS: BP 107/69
[2020-04-26] MEDS: LEVOTHYROXINE SODIUM 88 MCG TABLET PO SCH (06:57)
[2020-04-26 08:00] VITALS: BP 132/70
[2020-04-26] MEDS: SENNA 187 MG TABLET PO PRN ×2 (08:31→20:20)
[2020-04-26] MEDS: DIVALPROEX SODIUM 500 MG DR TABLET PO SCH ×2 (08:31→20:20)
[2020-04-26] MEDS: MULTIVITAMINS WITH MINERALS, THERAPEUTIC TABLET PO SCH (08:31)
[2020-04-26 17:53] VITALS: BP 105/81
[2020-04-26] MEDS: QUEtiapine FUMARATE 200 MG TABLET PO SCH (20:20)
[2020-04-27] MEDS: LEVOTHYROXINE SODIUM 88 MCG TABLET PO SCH (07:07)
[2020-04-27 08:00] VITALS: BP 117/68
[2020-04-27] MEDS: MULTIVITAMINS WITH MINERALS, THERAPEUTIC TABLET PO SCH (08:29)
[2020-04-27] MEDS: DIVALPROEX SODIUM 500 MG DR TABLET PO SCH ×2 (08:29→20:03)
[2020-04-27] MEDS: SENNA 187 MG TABLET PO SCH ×2 (12:56→20:03)
[2020-04-27 17:52] VITALS: BP 132/71
[2020-04-27] MEDS: QUEtiapine FUMARATE 200 MG TABLET PO SCH (20:03)
[2020-04-28] MEDS: LEVOTHYROXINE SODIUM 88 MCG TABLET PO SCH (06:53)
[2020-04-28] MEDS: DIVALPROEX SODIUM 500 MG DR TABLET PO SCH ×2 (08:06→20:44)
[2020-04-28] MEDS: SENNA 187 MG TABLET PO SCH ×2 (08:06→20:44)
[2020-04-28] MEDS: MULTIVITAMINS WITH MINERALS, THERAPEUTIC TABLET PO SCH (08:06)
[2020-04-28 09:05] VITALS: BP 107/79
[2020-04-28 16:32] VITALS: BP 99/57
[2020-04-28] MEDS: QUEtiapine FUMARATE 200 MG TABLET PO SCH (20:44)
[2020-04-29] MEDS: LEVOTHYROXINE SODIUM 88 MCG TABLET PO SCH (06:41)
[2020-04-29] MEDS: DIVALPROEX SODIUM 500 MG DR TABLET PO SCH ×2 (08:54→20:43)
[2020-04-29] MEDS: MULTIVITAMINS WITH MINERALS, THERAPEUTIC TABLET PO SCH (08:54)
[2020-04-29] MEDS: SENNA 187 MG TABLET PO SCH ×2 (08:55→20:43)
[2020-04-29 09:52] VITALS: BP 120/69
[2020-04-29 16:30] VITALS: BP_SYST 105; BP_SYST 125; BP_DIAS 59; BP_DIAS 87
[2020-04-29] MEDS: QUEtiapine FUMARATE 200 MG TABLET PO SCH (20:43)
[2020-04-30] MEDS: LEVOTHYROXINE SODIUM 88 MCG TABLET PO SCH (07:06)
[2020-04-30] MEDS: DIVALPROEX SODIUM 500 MG DR TABLET PO SCH ×2 (08:31→20:35)
[2020-04-30] MEDS: MULTIVITAMINS WITH MINERALS, THERAPEUTIC TABLET PO SCH (08:31)
[2020-04-30] MEDS: SENNA 187 MG TABLET PO SCH ×2 (08:31→20:35)
[2020-04-30 09:13] VITALS: BP 103/67
[2020-04-30 16:10] VITALS: BP 104/82
[2020-04-30] MEDS: QUEtiapine FUMARATE 200 MG TABLET PO SCH (21:22)
[2020-05-01] MEDS: LEVOTHYROXINE SODIUM 88 MCG TABLET PO SCH (06:19)
[2020-05-01] MEDS: SENNA 187 MG TABLET PO SCH ×2 (08:23→20:26)
[2020-05-01] MEDS: DIVALPROEX SODIUM 500 MG DR TABLET PO SCH ×2 (08:23→20:26)
[2020-05-01] MEDS: MULTIVITAMINS WITH MINERALS, THERAPEUTIC TABLET PO SCH (08:23)
[2020-05-01 10:02] VITALS: BP 100/66
[2020-05-01 16:17] VITALS: BP 112/89
[2020-05-01] MEDS: QUEtiapine FUMARATE 200 MG TABLET PO SCH (20:26)
[2020-05-02] MEDS: LEVOTHYROXINE SODIUM 88 MCG TABLET PO SCH (06:39)
[2020-05-02] MEDS: SENNA 187 MG TABLET PO SCH ×2 (08:30→20:25)
[2020-05-02] MEDS: DIVALPROEX SODIUM 500 MG DR TABLET PO SCH ×2 (08:30→20:25)
[2020-05-02] MEDS: MULTIVITAMINS WITH MINERALS, THERAPEUTIC TABLET PO SCH (08:30)
[2020-05-02 10:09] VITALS: BP 103/78
[2020-05-02 17:02] VITALS: BP 107/85
[2020-05-02] MEDS: QUEtiapine FUMARATE 200 MG TABLET PO SCH (20:25)
[2020-05-03] MEDS: LEVOTHYROXINE SODIUM 88 MCG TABLET PO SCH (06:41)
[2020-05-03 08:00] VITALS: BP 122/77
[2020-05-03] MEDS: DIVALPROEX SODIUM 500 MG DR TABLET PO SCH ×2 (08:00→20:26)
[2020-05-03] MEDS: MULTIVITAMINS WITH MINERALS, THERAPEUTIC TABLET PO SCH (08:00)
[2020-05-03] MEDS: SENNA 187 MG TABLET PO SCH ×2 (08:00→20:26)
[2020-05-03 19:10] VITALS: BP 125/69
[2020-05-03] MEDS: QUEtiapine FUMARATE 200 MG TABLET PO SCH (20:26)
[2020-05-04] MEDS: LEVOTHYROXINE SODIUM 88 MCG TABLET PO SCH (06:34)
[2020-05-04] MEDS: MULTIVITAMINS WITH MINERALS, THERAPEUTIC TABLET PO SCH (08:18)
[2020-05-04] MEDS: SENNA 187 MG TABLET PO SCH ×2 (08:18→20:10)
[2020-05-04] MEDS: DIVALPROEX SODIUM 500 MG DR TABLET PO SCH ×2 (08:19→20:11)
[2020-05-04 09:09] VITALS: BP 110/68
[2020-05-04 16:00] VITALS: BP 106/76
[2020-05-04] MEDS: QUEtiapine FUMARATE 200 MG TABLET PO SCH (20:11)
[2020-05-05] MEDS: LEVOTHYROXINE SODIUM 88 MCG TABLET PO SCH (06:28)
[2020-05-05] MEDS: MULTIVITAMINS WITH MINERALS, THERAPEUTIC TABLET PO SCH (08:09)
[2020-05-05] MEDS: DIVALPROEX SODIUM 500 MG DR TABLET PO SCH ×2 (08:09→20:37)
[2020-05-05] MEDS: SENNA 187 MG TABLET PO SCH ×2 (08:10→20:36)
[2020-05-05 09:57] VITALS: BP 107/79
[2020-05-05 17:13] VITALS: BP 150/60
[2020-05-05] MEDS: QUEtiapine FUMARATE 200 MG TABLET PO SCH (20:36)
[2020-05-06] MEDS: LEVOTHYROXINE SODIUM 88 MCG TABLET PO SCH (06:51)
[2020-05-06] MEDS: SENNA 187 MG TABLET PO SCH ×2 (08:29→20:22)
[2020-05-06] MEDS: MULTIVITAMINS WITH MINERALS, THERAPEUTIC TABLET PO SCH (08:29)
[2020-05-06] MEDS: DIVALPROEX SODIUM 500 MG DR TABLET PO SCH ×2 (08:29→20:22)
[2020-05-06 08:36] VITALS: BP 122/93
[2020-05-06 16:45] VITALS: BP 125/80
[2020-05-06] MEDS: QUEtiapine FUMARATE 200 MG TABLET PO SCH (20:22)
[2020-05-07] MEDS: LEVOTHYROXINE SODIUM 88 MCG TABLET PO SCH (06:46)
[2020-05-07] MEDS: MULTIVITAMINS WITH MINERALS, THERAPEUTIC TABLET PO SCH (08:09)
[2020-05-07] MEDS: DIVALPROEX SODIUM 500 MG DR TABLET PO SCH ×2 (08:09→20:14)
[2020-05-07] MEDS: SENNA 187 MG TABLET PO SCH ×2 (08:10→20:14)
[2020-05-07 09:19] VITALS: BP 96/82
[2020-05-07 18:45] VITALS: BP 119/74
[2020-05-07] MEDS: QUEtiapine FUMARATE 200 MG TABLET PO SCH (20:14)
[2020-05-08] MEDS: LEVOTHYROXINE SODIUM 88 MCG TABLET PO SCH (06:14)
[2020-05-08] MEDS: SENNA 187 MG TABLET PO SCH ×2 (08:51→20:19)
[2020-05-08] MEDS: MULTIVITAMINS WITH MINERALS, THERAPEUTIC TABLET PO SCH (08:51)
[2020-05-08] MEDS: DIVALPROEX SODIUM 500 MG DR TABLET PO SCH ×2 (08:51→20:19)
[2020-05-08 09:00] VITALS: BP 141/75
[2020-05-08 11:39] VITALS: BP 141/75
[2020-05-08 17:07] VITALS: BP 113/78
[2020-05-08] MEDS: QUEtiapine FUMARATE 200 MG TABLET PO SCH (20:19)
[2020-05-09] MEDS: LEVOTHYROXINE SODIUM 88 MCG TABLET PO SCH (06:01)
[2020-05-09] MEDS: MULTIVITAMINS WITH MINERALS, THERAPEUTIC TABLET PO SCH (08:50)
[2020-05-09] MEDS: DIVALPROEX SODIUM 500 MG DR TABLET PO SCH ×2 (08:50→20:19)
[2020-05-09] MEDS: SENNA 187 MG TABLET PO SCH ×2 (08:51→20:19)
[2020-05-09 10:07] VITALS: BP 104/71
[2020-05-09 16:22] VITALS: BP 126/77
[2020-05-09] MEDS: QUEtiapine FUMARATE 200 MG TABLET PO SCH (20:19)
[2020-05-09 21:27] VITALS: BP 118/74
[2020-05-10] MEDS: LEVOTHYROXINE SODIUM 88 MCG TABLET PO SCH (07:05)
[2020-05-10 08:00] VITALS: BP 111/74
[2020-05-10] MEDS: MULTIVITAMINS WITH MINERALS, THERAPEUTIC TABLET PO SCH (08:52)
[2020-05-10] MEDS: DIVALPROEX SODIUM 500 MG DR TABLET PO SCH ×2 (08:52→20:33)
[2020-05-10] MEDS: SENNA 187 MG TABLET PO SCH ×2 (08:52→20:33)
[2020-05-10 16:00] VITALS: BP 124/60
[2020-05-10] MEDS: QUEtiapine FUMARATE 200 MG TABLET PO SCH (20:33)
[2020-05-11] MEDS: LEVOTHYROXINE SODIUM 88 MCG TABLET PO SCH (06:25)
[2020-05-11] MEDS: DIVALPROEX SODIUM 500 MG DR TABLET PO SCH ×2 (08:05→21:27)
[2020-05-11] MEDS: MULTIVITAMINS WITH MINERALS, THERAPEUTIC TABLET PO SCH (08:05)
[2020-05-11] MEDS: SENNA 187 MG TABLET PO SCH ×2 (08:06→21:27)
[2020-05-11 08:16] VITALS: BP 114/60
[2020-05-11 16:39] VITALS: BP 95/60
[2020-05-11] MEDS: QUEtiapine FUMARATE 200 MG TABLET PO SCH (21:27)
[2020-05-12] MEDS: LEVOTHYROXINE SODIUM 200 MCG TABLET PO SCH (07:02)
[2020-05-12 08:34] VITALS: BP 110/66
[2020-05-12] MEDS: MULTIVITAMINS WITH MINERALS, THERAPEUTIC TABLET PO SCH (10:28)
[2020-05-12] MEDS: DIVALPROEX SODIUM 500 MG DR TABLET PO SCH ×2 (10:28→20:36)
[2020-05-12] MEDS: SENNA 187 MG TABLET PO SCH ×2 (10:28→20:36)
[2020-05-12 16:00] VITALS: BP 117/66
[2020-05-12] MEDS: QUEtiapine FUMARATE 200 MG TABLET PO SCH (20:36)
[2020-05-13] MEDS: LEVOTHYROXINE SODIUM 200 MCG TABLET PO SCH (06:53)
[2020-05-13] MEDS: SENNA 187 MG TABLET PO SCH ×2 (08:47→20:05)
[2020-05-13] MEDS: DIVALPROEX SODIUM 500 MG DR TABLET PO SCH ×2 (08:48→20:04)
[2020-05-13] MEDS: MULTIVITAMINS WITH MINERALS, THERAPEUTIC TABLET PO SCH (08:48)
[2020-05-13 09:16] VITALS: BP 116/67
[2020-05-13 12:09] VITALS: BP 116/67
[2020-05-13 16:00] VITALS: BP 112/67
[2020-05-13] MEDS: QUEtiapine FUMARATE 200 MG TABLET PO SCH (20:05)
[2020-05-14] MEDS: LEVOTHYROXINE SODIUM 200 MCG TABLET PO SCH (06:05)
[2020-05-14 08:00] VITALS: BP 107/62
[2020-05-14] MEDS: DIVALPROEX SODIUM 500 MG DR TABLET PO SCH ×2 (08:45→20:04)
[2020-05-14] MEDS: SENNA 187 MG TABLET PO SCH ×2 (08:45→20:04)
[2020-05-14] MEDS: MULTIVITAMINS WITH MINERALS, THERAPEUTIC TABLET PO SCH (08:45)
[2020-05-14 16:00] VITALS: BP 108/70
[2020-05-14] MEDS: QUEtiapine FUMARATE 200 MG TABLET PO SCH (20:05)
[2020-05-15] MEDS: LEVOTHYROXINE SODIUM 200 MCG TABLET PO SCH (06:51)
[2020-05-15] MEDS: MULTIVITAMINS WITH MINERALS, THERAPEUTIC TABLET PO SCH (08:58)
[2020-05-15] MEDS: SENNA 187 MG TABLET PO SCH ×2 (08:58→20:11)
[2020-05-15] MEDS: DIVALPROEX SODIUM 500 MG DR TABLET PO SCH ×2 (08:58→20:11)
[2020-05-15 09:29] VITALS: BP 118/66
[2020-05-15 16:00] VITALS: BP 116/76
[2020-05-15] MEDS: QUEtiapine FUMARATE 200 MG TABLET PO SCH (20:11)
[2020-05-16] MEDS: LEVOTHYROXINE SODIUM 200 MCG TABLET PO SCH (06:43)
[2020-05-16] MEDS: SENNA 187 MG TABLET PO SCH ×2 (08:20→20:25)
[2020-05-16] MEDS: DIVALPROEX SODIUM 500 MG DR TABLET PO SCH ×2 (08:20→20:25)
[2020-05-16] MEDS: MULTIVITAMINS WITH MINERALS, THERAPEUTIC TABLET PO SCH (08:20)
[2020-05-16 10:12] VITALS: BP 109/70
[2020-05-16 17:08] VITALS: BP 92/74
[2020-05-16] MEDS: QUEtiapine FUMARATE 200 MG TABLET PO SCH (20:25)
[2020-05-17] MEDS: LEVOTHYROXINE SODIUM 200 MCG TABLET PO SCH (06:41)
[2020-05-17] MEDS: DIVALPROEX SODIUM 500 MG DR TABLET PO SCH ×2 (08:10→20:20)
[2020-05-17] MEDS: SENNA 187 MG TABLET PO SCH ×2 (08:10→20:19)
[2020-05-17] MEDS: MULTIVITAMINS WITH MINERALS, THERAPEUTIC TABLET PO SCH (08:11)
[2020-05-17 08:12] VITALS: BP 116/87
[2020-05-17 16:24] VITALS: BP 110/76
[2020-05-17] MEDS: QUEtiapine FUMARATE 200 MG TABLET PO SCH (20:19)
[2020-05-18] MEDS: LEVOTHYROXINE SODIUM 200 MCG TABLET PO SCH (06:16)
[2020-05-18] MEDS: SENNA 187 MG TABLET PO SCH ×2 (08:09→20:16)
[2020-05-18] MEDS: DIVALPROEX SODIUM 500 MG DR TABLET PO SCH ×2 (08:09→20:16)
[2020-05-18] MEDS: MULTIVITAMINS WITH MINERALS, THERAPEUTIC TABLET PO SCH (08:09)
[2020-05-18 08:27] VITALS: BP 108/73
[2020-05-18 16:31] VITALS: BP 101/66
[2020-05-18] MEDS: QUEtiapine FUMARATE 200 MG TABLET PO SCH (20:16)
[2020-05-19] MEDS: LEVOTHYROXINE SODIUM 200 MCG TABLET PO SCH (06:40)
[2020-05-19] MEDS: MULTIVITAMINS WITH MINERALS, THERAPEUTIC TABLET PO SCH (09:06)
[2020-05-19] MEDS: SENNA 187 MG TABLET PO SCH (09:06)
[2020-05-19] MEDS: DIVALPROEX SODIUM 500 MG DR TABLET PO SCH (09:06)
[2020-05-19] MEDS ORDERED: LEVO200 PO (10:34)
[2020-05-19] MEDS ORDERED: MULT-1239 PO (10:34)
[2020-05-19] MEDS ORDERED: SENN8.6T90 PO (10:35)
[2020-05-19] MEDS ORDERED: QUET400T12 PO (10:39)
[2020-05-19] MEDS ORDERED: DIVA-78 PO (10:39)
[2020-05-19] MEDS ORDERED: CEPHALEXIN MONOHYDRATE 500 MG CAPSULE PO SCH (17:00)
[2020-05-19] MEDS ORDERED: NEOMYCIN/BACITRACIN/POLYMYXIN B 30 GM OINTMENT TP SCH (17:00)
[2020-05-19] MEDS ORDERED: SULFAMETHOX/TRIMETH DS 800-160 MG/TABLET PO SCH (17:00)
== END 2020-05-19 14:59 | disposition home or self-care (01) | DRG 885 ==
LOC: EMS 14:50 → 3EX 18:24
PROVIDERS: ADMIT Psychiatry & Neurology Child & Adolescent Psychiatry; ATTEND Psychiatry & Neurology Child & Adolescent Psychiatry
DX: F20.0 Paranoid schizophrenia (principal); Z68.41 Body mass index [BMI] 40.0-44.9, adult; E66.9 Obesity, unspecified; I10 Essential (primary) hypertension; E03.9 Hypothyroidism, unspecified; D64.9 Anemia, unspecified; M19.90 Unspecified osteoarthritis, unspecified site; Z88.8 Allergy status to other drugs, medicaments and biological substances; Z59.0 Homelessness; Z79.899 Other long term (current) drug therapy; Z91.14 Patient's other noncompliance with medication regimen; K21.9 Gastro-esophageal reflux disease without esophagitis
CPT/HCPCS: 84439; 84443; 87081; G0378; G0480; J3230; J3486

== ENCOUNTER 2025-02-22 17:12 | Emergency (ER) | payer MEDICAID, MEDICARE ==
[~2025-02-22] VITALS: Ht 167.6 cm; Wt 96.8 kg
[~2025-02-22 17:12] MED LIST changes: +DIVA-112 PO; +LEVO200 PO; -LEVO50TA4 PO; -LORA1TAB3 PO; +MULT-1239 PO; +QUET400T13 PO; -QUET400T5 PO; +SENN8.6T90 PO; -ZOLP10TA8 PO
[2025-02-22 19:14] VITALS: TEMP 97.1
[2025-02-22 19:30] LABS: GLUCOMETER DEV NAME(LOC) ERT.6; GLUCOSE,POINT OF CARE 97 MG/DL (70-110)
[2025-02-22 20:38] LABS: EOSINOPHILS % (AUTO) 1.5 % (1.0-6.0); HEMATOCRIT 39.8 % (36-46); LYMPHOCYTES # (AUTO) 1.6 K/uL (1.0-4.8); LYMPHOCYTES % (AUTO) 21.1 % (22.0-44.0); MEAN CORPUSCULAR HEMOGLOBIN 28.5 pg (26.0-34.0); MEAN CORPUSCULAR HGB CONC 32.8 G/dL (31.0-37.0); MEAN CORPUSCULAR VOLUME 87 fL (80-100); MONOCYTES # (AUTO) 0.6 K/uL (0.1-1.0); MONOCYTES % (AUTO) 8.2 % (2.0-9.0); NEUTROPHILS % (AUTO) 68.2 % (40.0-70.0); PLATELET COUNT (AUTO) 267 K/uL (150-450); RED BLOOD CELL COUNT(AUTO) 4.58 MIL/uL (4.00-5.20); RED CELL DISTRIBUTION WIDTH 14.9 % (11.5-14.5); WHITE BLOOD COUNT (AUTO) 7.4 K/uL (4.5-11.0)
[2025-02-22 20:47] LABS: ANION GAP 13 mmol/L (8-16); CALCIUM, TOTAL 9.2 mg/dL (8.8-10.5); CARBON DIOXIDE 25 mmol/L (22-29); CHLORIDE 102 mmol/L (98-107); CREATININE 0.86 mg/dL (0.60-1.30); GLOMERULAR FILTR. RATE CALC > 60 mL/min (>60); GLUCOSE,RANDOM 88 mg/dL (70-110); SODIUM SERUM 140 mmol/L (136-145); UREA NITROGEN, BLOOD 12 mg/dL (7-18)
[2025-02-22 20:50] LABS: ALCOHOL, BLOOD (SERUM) < 3 mg/dL (0-10)
[2025-02-22 20:52] LABS: POTASSIUM 3.5 mmol/L (3.5-5.1)
[2025-02-22 22:56] VITALS: BP 154/74; PULSE 92; RESP 16; O2SAT 95
== END 2025-02-23 04:01 ==
LOC: EMS 17:30
DX: F20.9 Schizophrenia, unspecified (principal); Z88.8 Allergy status to other drugs, medicaments and biological substances; Z79.899 Other long term (current) drug therapy
CPT/HCPCS: 99283; 80048; 82962; 85025; G0480

== ENCOUNTER 2025-05-02 16:26 | Inpatient (IN) | payer MEDICARE, MEDICAID ==
[~2025-05-02] VITALS: Ht 167.6 cm; Wt 103.9 kg
[~2025-05-02 16:26] MED LIST changes: +AMAN-24 PO; -DIVA-112 PO; +FLUP5TAB31 PO; +LEVO150 PO; -LEVO200 PO; +LITH300C3 PO; -MULT-1239 PO; -QUET400T13 PO; -SENN8.6T90 PO
[2025-05-02 17:10] VITALS: O2SAT 94
[2025-05-02 20:04] LABS: COVID AG,FIA SOURCE NASAL SWAB
[2025-05-02 20:28] LABS: SARS-COV2 (COVID) ANTIGEN,FIA Negative (Negative)
[2025-05-03] MEDS ORDERED: haloperidoL 5 MG TABLET PO PRN (01:45)
[2025-05-03] MEDS ORDERED: ZOLPIDEM TARTRATE 5 MG TABLET PO PRN (01:45)
[2025-05-03 05:50] VITALS: BP 118/65; PULSE 64; RESP 18; TEMP 98.1; O2SAT 98
[2025-05-03] MEDS ORDERED: MAG HYDROX/ALUMINUM HYD/SIMETH ES 30 ML SUSPENSION UDCUP PO PRN (06:00)
[2025-05-03] MEDS ORDERED: PETROLATUM,WHITE 28 GM JELLY TP PRN (06:00)
[2025-05-03] MEDS ORDERED: CloNIDine HCL 0.1 MG TABLET PO PRN (06:00)
[2025-05-03] MEDS ORDERED: GuaiFENesin/D-METHORPHAN [SUGAR-FREE] 200-20MG/10 ML SYRUP UDCUP PO PRN (06:00)
[2025-05-03] MEDS ORDERED: LOPERAMIDE HCL 2 MG CAPSULE PO PRN (06:00)
[2025-05-03] MEDS ORDERED: MAGNESIUM HYDROXIDE SUSPENSION 30 ML UDCUP PO PRN (06:00)
[2025-05-03] MEDS ORDERED: ALBUTEROL SULFATE HFA 90 MCG/PUFF 8 GM INHALER IH PRN (06:00)
[2025-05-03] MEDS ORDERED: ONDANSETRON 4 MG TABLET PO PRN (06:00)
[2025-05-03] MEDS ORDERED: NICOTINE 14 MG/24 HOUR PATCH TD PRN (06:00)
[2025-05-03] MEDS: LEVOTHYROXINE SODIUM 150 MCG TABLET PO SCH (07:03)
[2025-05-03] MEDS: amantadine HCL 100 MG CAPSULE PO SCH (09:00)
[2025-05-03 09:07] VITALS: BP 106/81; PULSE 89; RESP 17; TEMP 97.8; O2SAT 98
[2025-05-03 11:36] LABS: BASOPHILS % (AUTO) 1.1 % (0.0-2.0); EOSINOPHILS % (AUTO) 3.5 % (1.0-6.0); HEMATOCRIT 35.1 % (36-46); HEMOGLOBIN 11.3 g/dL (12.0-16.0); LYMPHOCYTES # (AUTO) 1.1 K/uL (1.0-4.8); LYMPHOCYTES % (AUTO) 25.7 % (22.0-44.0); MEAN CORPUSCULAR HEMOGLOBIN 27.4 pg (26.0-34.0); MEAN CORPUSCULAR HGB CONC 32.2 G/dL (31.0-37.0); MEAN CORPUSCULAR VOLUME 85 fL (80-100); MONOCYTES # (AUTO) 0.3 K/uL (0.1-1.0); MONOCYTES % (AUTO) 7.6 % (2.0-9.0); NEUTROPHILS # (AUTO) 2.7 K/uL (1.8-7.7); NEUTROPHILS % (AUTO) 62.1 % (40.0-70.0); PLATELET COUNT (AUTO) 260 K/uL (150-450); RED BLOOD CELL COUNT(AUTO) 4.13 MIL/uL (4.00-5.20); RED CELL DISTRIBUTION WIDTH 16.1 % (11.5-14.5); WHITE BLOOD COUNT (AUTO) 4.3 K/uL (4.5-11.0)
[2025-05-03 11:45] LABS: ANION GAP 2 mmol/L (8-16); CALCIUM, TOTAL 8.4 mg/dL (8.8-10.5); CARBON DIOXIDE 33 mmol/L (22-29); CHLORIDE 104 mmol/L (98-107); CREATININE 0.84 mg/dL (0.60-1.30); GLOMERULAR FILTR. RATE CALC > 60 mL/min (>60); GLUCOSE,RANDOM 118 mg/dL (70-110); SODIUM SERUM 139 mmol/L (136-145); UREA NITROGEN, BLOOD 15 mg/dL (7-18)
[2025-05-03] MEDS: FluPHENAZine HCL 5 MG TABLET PO SCH (13:27)
[2025-05-03] MEDS: LITHIUM CARBONATE 300 MG CAPSULE PO SCH (13:28)
[2025-05-03] MEDS: LITHIUM CARBONATE 600 MG CAPSULE PO SCH (20:31)
[2025-05-03 22:16] VITALS: BP 120/65; PULSE 87; RESP 18; TEMP 98.1; O2SAT 95
[2025-05-04 09:46] VITALS: BP_DIAS 78; PULSE 81; RESP 17; TEMP 98
[2025-05-04] MEDS: IBUPROFEN 400 MG TABLET PO PRN (09:46)
[2025-05-04 10:46] VITALS: BP 136/71; PULSE 78; RESP 17; TEMP 97.9
[2025-05-04 12:36] LABS: HEMOGLOBIN A1C 5.1 % (3.8-5.6)
[2025-05-04 13:08] LABS: CHOL/HDL RATIO 2.8 (3.9-5.7); THYROID STIMULATING HORMONE 26.27 uIU/mL (0.36-3.74)
[2025-05-04 21:00] VITALS: BP 95/68; PULSE 75; RESP 18; TEMP 96.8; O2SAT 99
[2025-05-05 09:21] VITALS: BP 126/86; PULSE 86; RESP 18; TEMP 98.2; O2SAT 98
[2025-05-05] MEDS: ACETAMINOPHEN 325 MG TABLET PO PRN (09:21)
[2025-05-05] MEDS: FluPHENAZine HCL 2.5 MG/ML INJ IM PRN (11:04)
[2025-05-05 11:26] VITALS: BP 118/82; PULSE 83; RESP 16; TEMP 98.2; O2SAT 98
[2025-05-05] MEDS ORDERED: FluPHENAZine HCL 2.5 MG/ML INJ IM PRN (11:30)
[2025-05-05] MEDS: FluPHENAZine HCL 10 MG TABLET PO SCH (16:11)
[2025-05-05] MEDS: LORazepam 2 MG TABLET PO PRN (18:47)
[2025-05-05 22:12] VITALS: BP 111/87; PULSE 70; RESP 16; TEMP 98.2; O2SAT 16
[2025-05-06] MEDS: DOCUSATE SODIUM 100 MG CAPSULE PO PRN (08:18)
[2025-05-06 17:57] VITALS: BP 121/71; PULSE 87; RESP 17; TEMP 97.6; O2SAT 100
[2025-05-06 20:26] VITALS: BP 141/91; PULSE 80; RESP 16; TEMP 98.4; O2SAT 98
[2025-05-07 08:20] VITALS: RESP 18
[2025-05-07 23:05] VITALS: BP 128/78; PULSE 69; RESP 17; TEMP 98.2; O2SAT 96
[2025-05-08] VITALS (8 sets, daily range): BP systolic 105–123; BP diastolic 75–94; PULSE 66–75; RESP 16–18; TEMP 97.8–98.1; O2SAT 96–99
[2025-05-09 12:49] VITALS: BP 121/100; PULSE 75; RESP 18; TEMP 97.7; O2SAT 98
[2025-05-09 22:36] VITALS: RESP 18
[2025-05-10 09:00] VITALS: BP 112/60; PULSE 78; RESP 18; TEMP 98; O2SAT 98
[2025-05-10 22:18] VITALS: BP 133/89; PULSE 69; RESP 16; TEMP 98; O2SAT 94
[2025-05-11 11:41] VITALS: BP 145/89; PULSE 72; RESP 18; TEMP 98.3; O2SAT 99
[2025-05-11 13:16] LABS: BASOPHILS % (AUTO) 0.9 % (0.0-2.0); EOSINOPHILS % (AUTO) 2.5 % (1.0-6.0); HEMATOCRIT 36.8 % (36-46); LYMPHOCYTES # (AUTO) 1.4 K/uL (1.0-4.8); LYMPHOCYTES % (AUTO) 25.2 % (22.0-44.0); MEAN CORPUSCULAR HEMOGLOBIN 27.6 pg (26.0-34.0); MEAN CORPUSCULAR HGB CONC 32.6 G/dL (31.0-37.0); MEAN CORPUSCULAR VOLUME 85 fL (80-100); MONOCYTES # (AUTO) 0.5 K/uL (0.1-1.0); NEUTROPHILS # (AUTO) 3.6 K/uL (1.8-7.7); NEUTROPHILS % (AUTO) 63.4 % (40.0-70.0); PLATELET COUNT (AUTO) 257 K/uL (150-450); RED BLOOD CELL COUNT(AUTO) 4.34 MIL/uL (4.00-5.20); RED CELL DISTRIBUTION WIDTH 16.1 % (11.5-14.5); WHITE BLOOD COUNT (AUTO) 5.7 K/uL (4.5-11.0)
[2025-05-11 13:24] LABS: LITHIUM 0.42 mmol/L (0.60-1.20)
[2025-05-11 13:39] LABS: ALBUMIN 3.3 g/dL (3.4-5.0); BILIRUBIN,TOTAL 0.6 mg/dL (0.1-1.0); CALCIUM, TOTAL 8.9 mg/dL (8.8-10.5); CHOL/HDL RATIO 2.8 (3.9-5.7); CREATININE 0.99 mg/dL (0.60-1.30); MAGNESIUM 2.1 mg/dL (1.80-2.40); PHOSPHORUS 4.5 mg/dL (2.5-4.9); POTASSIUM 4.2 mmol/L (3.5-5.1); THYROID STIMULATING HORMONE 19.29 uIU/mL (0.36-3.74); TOTAL PROTEIN, SERUM 7.5 g/dL (6.4-8.2)
[2025-05-11 21:44] VITALS: BP 114/82; PULSE 88; RESP 18; TEMP 98.6; O2SAT 99
[2025-05-12 09:29] VITALS: BP 122/79; PULSE 78; RESP 18; TEMP 97
[2025-05-12 10:24] VITALS: BP 113/76; PULSE 86; RESP 17; TEMP 98.7; O2SAT 95
[2025-05-12 10:30] VITALS: BP 121/75; PULSE 79; RESP 18; TEMP 98.7
[2025-05-12 22:24] VITALS: BP 137/89; PULSE 74; RESP 17; TEMP 98.3; O2SAT 97
[2025-05-13 09:43] VITALS: BP 133/85; PULSE 79; RESP 16; TEMP 96.6; O2SAT 96
[2025-05-13 10:20] VITALS: BP 133/85; PULSE 79; RESP 16; TEMP 96.6; O2SAT 96
== END 2025-05-13 18:15 | DRG 885 ==
LOC: EMS 16:26 → 3EX 05-03 03:21
PROVIDERS: ADMIT Psychiatry & Neurology Child & Adolescent Psychiatry; ATTEND Psychiatry & Neurology Child & Adolescent Psychiatry
PROC: GZ56ZZZ Individual Psychotherapy, Supportive (ICD-10-PCS; principal; 2025-05-03)
PROC: GZ58ZZZ Individual Psychotherapy, Cognitive-Behavioral (ICD-10-PCS; 2025-05-03)
PROC: GZHZZZZ Group Psychotherapy (ICD-10-PCS; 2025-05-03)
DX: F20.9 Schizophrenia, unspecified (principal); Z20.822 Contact with and (suspected) exposure to COVID-19; E03.9 Hypothyroidism, unspecified; E66.3 Overweight; R45.850 Homicidal ideations; F41.9 Anxiety disorder, unspecified; Z79.899 Other long term (current) drug therapy; Z68.37 Body mass index [BMI] 37.0-37.9, adult; Z88.8 Allergy status to other drugs, medicaments and biological substances
CPT/HCPCS: 80048; 80053; 80061; 80178; 83036; 83735; 84100; 84443; 85025; 99285; G0378; G0480; J3490

== ENCOUNTER 2025-10-10 20:54 | Inpatient (IN) | payer MEDICARE, MEDICAID ==
[~2025-10-10] VITALS: Ht 167.6 cm; Wt 123.4 kg
[~2025-10-10 20:54] MED LIST changes: -AMAN-24 PO; +AMOX-457 PO
[2025-10-10 21:03] VITALS: O2SAT 97
[2025-10-10] MEDS ORDERED: LEVO175T58 PO (23:27)
[2025-10-11 00:46] LABS: COVID AG,FIA SOURCE NASAL SWAB
[2025-10-11 01:41] LABS: APPEARANCE,URINE CLEAR (CLEAR); GLUCOSE, URINE (UA) NEGATIVE (NEGATIVE); LEUKOCYTE ESTERASE ,URINE NEGATIVE (NEGATIVE); NITRATE,URINE NEGATIVE (NEGATIVE); OCCULT BLOOD,URINE NEGATIVE (NEGATIVE); PH,URINE DRUG SCREEN 7.0 (5.0-8.0); SPECIFIC GRAVITIY, URINE 1.018 (1.003-1.030)
[2025-10-11 01:43] LABS: SARS-COV2 (COVID) ANTIGEN,FIA Negative (Negative)
[2025-10-11] MEDS ORDERED: ZOLPIDEM TARTRATE 10 MG TABLET PO PRN (01:45)
[2025-10-11 01:47] LABS: AMPHET/METH SCREEN,URINE NEGATIVE (NEGATIVE); BARBITURATE SCREEN, URINE NEGATIVE (NEGATIVE); CANNABINOID SCREEN,URINE NEGATIVE (NEGATIVE); COCAINE SCREEN,URINE NEGATIVE (NEGATIVE); METHADONE SCREEN, URINE NEGATIVE (NEGATIVE)
[2025-10-11 01:54] LABS: ALCOHOL, URINE DRUG SCREEN NEGATIVE (NEGATIVE)
[2025-10-11 04:36] VITALS: BP 118/89; PULSE 70; RESP 18; TEMP 97.9; O2SAT 98
[2025-10-11] MEDS: LEVOTHYROXINE SODIUM 50 MCG TABLET PO SCH (09:12)
[2025-10-11] MEDS ORDERED: NICOTINE 14 MG/24 HOUR PATCH TD PRN (10:00)
[2025-10-11] MEDS ORDERED: MAG HYDROX/ALUMINUM HYD/SIMETH ES 30 ML SUSPENSION UDCUP PO PRN (10:00)
[2025-10-11] MEDS ORDERED: PETROLATUM,WHITE 28 GM JELLY TP PRN (10:00)
[2025-10-11] MEDS ORDERED: GuaiFENesin/D-METHORPHAN [SUGAR-FREE] 200-20MG/10 ML SYRUP UDCUP PO PRN (10:00)
[2025-10-11] MEDS ORDERED: ALBUTEROL SULFATE HFA 90 MCG/PUFF 8 GM INHALER IH PRN (10:00)
[2025-10-11] MEDS ORDERED: ONDANSETRON 4 MG TABLET PO PRN (10:00)
[2025-10-11] MEDS ORDERED: LOPERAMIDE HCL 2 MG CAPSULE PO PRN (10:00)
[2025-10-11] MEDS ORDERED: MAGNESIUM HYDROXIDE SUSPENSION 30 ML UDCUP PO PRN (10:00)
[2025-10-11] MEDS ORDERED: ACETAMINOPHEN 325 MG TABLET PO PRN (10:00)
[2025-10-11 10:17] VITALS: BP 108/51; PULSE 73; RESP 18; TEMP 98.4; O2SAT 99
[2025-10-11] MEDS: LITHIUM CARBONATE 600 MG CAPSULE PO SCH (20:42)
[2025-10-11 21:13] VITALS: RESP 18
[2025-10-12 05:00] VITALS: RESP 18
[2025-10-12] MEDS: IBUPROFEN 400 MG TABLET PO PRN (05:04)
[2025-10-12] MEDS: LITHIUM CARBONATE 300 MG CAPSULE PO SCH (08:42)
[2025-10-12 09:20] VITALS: RESP 18
[2025-10-12] MEDS: NYSTATIN 15 GM POWDER BOTTLE TP SCH (12:00)
[2025-10-12 20:36] VITALS: BP 107/61; PULSE 87; RESP 18; TEMP 98.1; O2SAT 98
[2025-10-13 08:57] VITALS: BP 107/79; PULSE 74; RESP 18; TEMP 97.9; O2SAT 97
[2025-10-13] MEDS ORDERED: FluPHENAZine HCL 2.5 MG/ML INJ IM PRN (12:45)
[2025-10-13 16:44] LABS: CALCIUM, TOTAL 9.2 mg/dL (8.8-10.5); CREATININE 1.32 mg/dL (0.60-1.30); GLOMERULAR FILTR. RATE CALC 40.0 mL/min (>60); GLUCOSE,RANDOM 116.0 mg/dL (70-110); SODIUM SERUM 138.0 mmol/L (136-145); UREA NITROGEN, BLOOD 29.0 mg/dL (7-18)
[2025-10-13 16:54] LABS: PLATELET COUNT (AUTO) 332 K/uL (150-450); RED BLOOD CELL COUNT(AUTO) 4.43 MIL/uL (4.00-5.20); RED CELL DISTRIBUTION WIDTH 16.2 % (11.5-14.5); WHITE BLOOD COUNT (AUTO) 8.5 K/uL (4.5-11.0)
[2025-10-13 17:10] LABS: ALCOHOL, BLOOD (SERUM) < 3 mg/dL (0-10)
[2025-10-13 17:33] LABS: CHOL/HDL RATIO 3.1 (3.9-5.7); LDL CHOL (CALC.) 95 mg/dL (0-130)
[2025-10-14] MEDS: DOCUSATE SODIUM 100 MG CAPSULE PO PRN (08:55)
[2025-10-14 13:20] VITALS: RESP 17
[2025-10-14 21:30] VITALS: RESP 18
[2025-10-15 00:38] VITALS: RESP 19
[2025-10-15 01:38] VITALS: RESP 18
[2025-10-15 12:47] VITALS: BP 133/99; PULSE 77; RESP 17; TEMP 97.9; O2SAT 100
[2025-10-15 20:30] VITALS: BP 117/65; PULSE 81; RESP 17; TEMP 97.4; O2SAT 100
[2025-10-16 09:50] VITALS: BP 114/58; PULSE 82; RESP 18; TEMP 97.9; O2SAT 96
[2025-10-16 09:51] VITALS: BP 114/58; PULSE 82; RESP 18; TEMP 97.9; O2SAT 96
[2025-10-16 10:56] VITALS: RESP 16
[2025-10-16] MEDS ORDERED: LITH300C3 PO (13:57)
[2025-10-16] MEDS ORDERED: FLUP10TA28 PO (13:57)
[2025-10-16] MEDS ORDERED: LITH600C PO (13:57)
== END 2025-10-16 15:16 | DRG 885 ==
LOC: EMS 20:54 → 3EX 10-11 02:42
PROVIDERS: ADMIT Psychiatry & Neurology Child & Adolescent Psychiatry; ATTEND Psychiatry & Neurology Child & Adolescent Psychiatry
PROC: GZHZZZZ Group Psychotherapy (ICD-10-PCS; principal; 2025-10-11)
PROC: GZ52ZZZ Individual Psychotherapy, Cognitive (ICD-10-PCS; 2025-10-11)
DX: F20.9 Schizophrenia, unspecified (principal); G20.A1 Parkinson's disease without dyskinesia, without mention of fluctuations; B36.9 Superficial mycosis, unspecified; E03.9 Hypothyroidism, unspecified; E66.3 Overweight; Z68.41 Body mass index [BMI] 40.0-44.9, adult; I10 Essential (primary) hypertension; F41.9 Anxiety disorder, unspecified; K21.9 Gastro-esophageal reflux disease without esophagitis; K59.00 Constipation, unspecified; Z20.822 Contact with and (suspected) exposure to COVID-19
CPT/HCPCS: 80048; 80061; 80178; 80307; 81003; 83036; 84443; 85025; 87081; 99285; G0378; G0480; J3490

== ENCOUNTER 2025-10-22 01:06 | Inpatient (IN) | payer MEDICARE, MEDICAID ==
[~2025-10-22] VITALS: Ht 165.1 cm; Wt 122.7 kg
[~2025-10-22 01:06] MED LIST changes: -AMOX-457 PO; +FLUP10TA28 PO; -FLUP5TAB31 PO; -LEVO150 PO; +LEVO175T58 PO; +LITH600C PO
[2025-10-22 07:09] VITALS: O2SAT 97
[2025-10-22 07:26] LABS: COVID AG,FIA SOURCE NASAL SWAB
[2025-10-22 07:44] LABS: SARS-COV2 (COVID) ANTIGEN,FIA Negative (Negative)
[2025-10-22] MEDS ORDERED: INFLUENZA VIRUS VACCINE TVS (6MO+) 2025-26/PF 45 MCG/0.5 ML SYRINGE IM. ONE (13:45)
[2025-10-22 15:01] VITALS: BP 130/85; PULSE 84; RESP 17; TEMP 98; O2SAT 99
[2025-10-22] MEDS: NYSTATIN 30 GM CREAM TP SCH (20:40)
[2025-10-22 22:25] VITALS: BP 110/93; PULSE 75; RESP 18; O2SAT 97
[2025-10-23] MEDS: LEVOTHYROXINE SODIUM 50 MCG TABLET PO SCH (06:46)
[2025-10-23 08:52] VITALS: BP 122/94; PULSE 104; RESP 18; TEMP 97.8; O2SAT 97
[2025-10-23 09:50] LABS: ASPARTATE AMINOTRANSFERASE 21.0 U/L (15-37); CALCIUM, TOTAL 9.1 mg/dL (8.8-10.5); CREATININE 1.02 mg/dL (0.60-1.30); GLOMERULAR FILTR. RATE CALC 53.0 mL/min (>60); GLUCOSE,RANDOM 139.0 mg/dL (70-110); SODIUM SERUM 140.0 mmol/L (136-145); TOTAL PROTEIN, SERUM 7.8 g/dL (6.4-8.2); UREA NITROGEN, BLOOD 13.0 mg/dL (7-18)
[2025-10-23 10:14] LABS: CHOL/HDL RATIO 2.7 (3.9-5.7); LDL CHOL (CALC.) 98.0 mg/dL (0-130)
[2025-10-23 20:20] VITALS: RESP 18; TEMP 98.1
[2025-10-24 08:11] VITALS: BP 125/90; PULSE 71; RESP 18; TEMP 97.7; O2SAT 98
[2025-10-24 20:33] VITALS: BP 139/120; PULSE 71; RESP 18; TEMP 97.7; O2SAT 95
[2025-10-24 21:06] LABS: PLATELET COUNT (AUTO) 249 K/uL (150-450); RED BLOOD CELL COUNT(AUTO) 4.06 MIL/uL (4.00-5.20); RED CELL DISTRIBUTION WIDTH 15.9 % (11.5-14.5); WHITE BLOOD COUNT (AUTO) 5.7 K/uL (4.5-11.0)
[2025-10-25 14:21] VITALS: BP 131/91; PULSE 77; RESP 17; TEMP 97.9; O2SAT 97
[2025-10-25 21:25] VITALS: BP 137/98; PULSE 66; RESP 17; TEMP 98.1; O2SAT 96
[2025-10-26 08:05] VITALS: BP 119/80; RESP 18; TEMP 98; O2SAT 98
[2025-10-26] MEDS ORDERED: FluPHENAZine HCL 2.5 MG/ML INJ IM PRN (12:30)
[2025-10-26] MEDS: LITHIUM CARBONATE 300 MG CAPSULE PO SCH (12:52)
[2025-10-26 20:28] VITALS: BP 130/90; PULSE 60; RESP 18; TEMP 97.8; O2SAT 98
[2025-10-26] MEDS: LITHIUM CARBONATE 600 MG CAPSULE PO SCH (21:55)
[2025-10-27] MEDS ORDERED: PETROLATUM,WHITE 28 GM JELLY TP PRN (07:00)
[2025-10-27] MEDS ORDERED: NICOTINE 14 MG/24 HOUR PATCH TD PRN (07:00)
[2025-10-27] MEDS ORDERED: MAG HYDROX/ALUMINUM HYD/SIMETH ES 30 ML SUSPENSION UDCUP PO PRN (07:00)
[2025-10-27] MEDS ORDERED: GuaiFENesin/D-METHORPHAN [SUGAR-FREE] 200-20MG/10 ML SYRUP UDCUP PO PRN (07:00)
[2025-10-27] MEDS ORDERED: DOCUSATE SODIUM 100 MG CAPSULE PO PRN (07:00)
[2025-10-27] MEDS ORDERED: ALBUTEROL SULFATE HFA 90 MCG/PUFF 8 GM INHALER IH PRN (07:00)
[2025-10-27] MEDS ORDERED: MAGNESIUM HYDROXIDE SUSPENSION 30 ML UDCUP PO PRN (07:00)
[2025-10-27] MEDS ORDERED: LOPERAMIDE HCL 2 MG CAPSULE PO PRN (07:00)
[2025-10-27] MEDS ORDERED: ACETAMINOPHEN 325 MG TABLET PO PRN (07:00)
[2025-10-27] MEDS ORDERED: ONDANSETRON 4 MG TABLET PO PRN (07:00)
[2025-10-27 13:46] VITALS: BP 126/86; PULSE 89; RESP 18; TEMP 97.6; O2SAT 98
[2025-10-27 20:35] VITALS: BP 126/69; PULSE 80; RESP 18; TEMP 97.7; O2SAT 98
[2025-10-28 08:25] LABS: PLATELET COUNT (AUTO) 242 K/uL (150-450); RED BLOOD CELL COUNT(AUTO) 4.04 MIL/uL (4.00-5.20); RED CELL DISTRIBUTION WIDTH 15.3 % (11.5-14.5); WHITE BLOOD COUNT (AUTO) 4.4 K/uL (4.5-11.0)
[2025-10-28 08:53] LABS: ASPARTATE AMINOTRANSFERASE 15 U/L (15-37); CALCIUM, TOTAL 9.0 mg/dL (8.8-10.5); CREATININE 0.79 mg/dL (0.60-1.30); GLOMERULAR FILTR. RATE CALC > 60 mL/min (>60); GLUCOSE,RANDOM 90 mg/dL (70-110); SODIUM SERUM 140 mmol/L (136-145); TOTAL PROTEIN, SERUM 7.2 g/dL (6.4-8.2); UREA NITROGEN, BLOOD 16 mg/dL (7-18)
[2025-10-28 09:21] LABS: CHOL/HDL RATIO 2.8 (3.9-5.7); LDL CHOL (CALC.) 86.0 mg/dL (0-130)
[2025-10-28 11:28] VITALS: BP 127/91; PULSE 68; RESP 18; TEMP 97.9; O2SAT 97
[2025-10-28 21:09] VITALS: BP 128/89; PULSE 76; RESP 18; TEMP 97.8; O2SAT 98
[2025-10-29 09:20] VITALS: BP 90/66; PULSE 62; RESP 18; TEMP 97.8; O2SAT 98
[2025-10-29 22:31] VITALS: BP 103/63; PULSE 78; RESP 18; O2SAT 96
[2025-10-30 10:38] VITALS: RESP 18
[2025-10-30 20:15] VITALS: RESP 18
[2025-10-31 09:00] VITALS: RESP 18
[2025-10-31 22:22] VITALS: BP 115/71; PULSE 64; RESP 18; TEMP 97.8; O2SAT 94
[2025-11-01] MEDS: ZOLPIDEM TARTRATE 10 MG TABLET PO PRN (02:40)
[2025-11-01 08:35] VITALS: BP 119/83; PULSE 75; RESP 16; TEMP 97.9; O2SAT 97
[2025-11-01] MEDS: IBUPROFEN 400 MG TABLET PO PRN (08:37)
[2025-11-01 20:00] VITALS: BP 110/75; PULSE 70; RESP 18; TEMP 97.5; O2SAT 98
[2025-11-02 08:30] VITALS: RESP 18
[2025-11-02 21:31] VITALS: BP 95/58; PULSE 70; RESP 19; TEMP 98
[2025-11-03 07:03] VITALS: BP 121/83; PULSE 83; RESP 18; TEMP 98.1; O2SAT 98
[2025-11-03 08:03] VITALS: RESP 17
[2025-11-03 15:54] VITALS: BP 123/79; PULSE 89; RESP 18; TEMP 98.3; O2SAT 99
[2025-11-03 20:35] VITALS: RESP 18
[2025-11-04 09:49] VITALS: RESP 17
[2025-11-04 20:05] VITALS: RESP 18
[2025-11-05] MEDS: OLANZapine 5 MG RAPDIS TABLET PO PRN (11:16)
[2025-11-05 11:38] VITALS: RESP 18
[2025-11-06 09:42] VITALS: RESP 17
[2025-11-06 13:21] VITALS: BP 125/68; RESP 18
[2025-11-06 20:22] VITALS: RESP 18
[2025-11-07 10:19] VITALS: BP 98/70; PULSE 71; RESP 16; TEMP 97.9; O2SAT 98
[2025-11-07 21:40] VITALS: RESP 17; TEMP 97.8
[2025-11-08 04:50] VITALS: BP 122/64; RESP 17; TEMP 98.1
[2025-11-08 12:53] VITALS: BP 103/68; PULSE 75; RESP 17; TEMP 98; O2SAT 96
== END 2025-11-08 21:09 | DRG 885 ==
LOC: EMS 01:06 → 3EX 10:20
PROVIDERS: ADMIT Psychiatry & Neurology Child & Adolescent Psychiatry; ATTEND Psychiatry & Neurology Child & Adolescent Psychiatry
PROC: GZ56ZZZ Individual Psychotherapy, Supportive (ICD-10-PCS; 2025-10-23)
PROC: GZ52ZZZ Individual Psychotherapy, Cognitive (ICD-10-PCS; 2025-10-24)
PROC: GZHZZZZ Group Psychotherapy (ICD-10-PCS; principal; 2025-11-04)
DX: F20.9 Schizophrenia, unspecified (principal); G20.A1 Parkinson's disease without dyskinesia, without mention of fluctuations; E03.9 Hypothyroidism, unspecified; I10 Essential (primary) hypertension; E66.3 Overweight; K59.00 Constipation, unspecified; R41.89 Other symptoms and signs involving cognitive functions and awareness; F41.9 Anxiety disorder, unspecified; L25.9 Unspecified contact dermatitis, unspecified cause; Z20.822 Contact with and (suspected) exposure to COVID-19; G47.00 Insomnia, unspecified; K21.9 Gastro-esophageal reflux disease without esophagitis; Z88.6 Allergy status to analgesic agent; Z88.8 Allergy status to other drugs, medicaments and biological substances; Z79.899 Other long term (current) drug therapy
CPT/HCPCS: 80053; 80061; 80178; 83036; 84436; 84443; 85025; 87081; 99285; G0378